=== PATIENT | female | born 1995 | race Caucasian/White ===

== ENCOUNTER 2023-11-11 11:05 | Emergency (ER) | payer OTHER, SELFPAY ==
--- NOTE | ~2023-11-11 | XR_ITS ---
EXAMINATION: XR RIBS, RIGHT CLINICAL INFORMATION: Fall/rib pain COMPARISON: None available. TECHNIQUE: 3 views of the right ribs were obtained. Chest one view. FINDINGS: CHEST: Lungs are clear. No consolidation, pneumothorax, or pleural effusion. The cardiomediastinal silhouette and pulmonary vasculature are normal. RIGHT RIBS: There is no visible acute fracture involving the right ribs. The bony chest wall is unremarkable. XR/XR ribs RT min 3V w CXR1V IMPRESSION: 1. Unremarkable chest exam. 2. Unremarkable right rib exam.
[2023-11-11 11:07] VITALS: BP 129/77; PULSE 95; RESP 18; TEMP 36.1; O2SAT 97; BMI 34.2
--- NOTE | 2023-11-11 14:42 | ED_ITS ---
HPI - General Adult General Chief complaint: General Medical Stated complaint: Fall last week R rib pain Time Seen by Provider: 11/11/23 14:42 Source: patient Mode of arrival: ambulatory Limitations: no limitations History of Present Illness HPI narrative: 28 year old female with no significant pmhx presents to the ED today for evaluation of right rib pain x3 days. States that approximately 1 week ago she fell while walking upstairs, reports hitting the front of her chest on 1 of the stairs and catching herself with her right arm. No head strike or LOC. not on AC. A few days later she began to have pain to her lower right ribs along her bra line. Pain is exacerbated with taking deep breaths. Has not noticed any bruising to the area. Pain does not radiate. Has not been taking anything at home for pain. Denies fever, chills, headache, dizziness, chest pain, shortness of breath, dyspnea, wheezing, Related Data Previous Rx's Medication Instructions Recorded lidocaine 5 % topical patch 1 patch topical DAILY #15 ea 11/11/23 (Lidoderm) naproxen 500 mg tablet 500 mg PO Q8-12H PRN pain (scale 11/11/23 score 4-6) #14 tabs Allergies Allergy/AdvReac Type Severity Reaction Status Date / Time No Known Allergies Allergy Verified 11/11/23 11:07 [No Known Allergies*] Review of Systems Review of Systems: Constitutional: No fever, chills, fatigue, night sweats, weight changes ENT/Mouth: No ear pain, hearing loss, nasal congestion, sinus pain, rhinorrhea, sore throat Eyes: No eye pain, swelling, redness, vision changes, discharge Cardio: No chest pain, palpitations, MELENDEZ, orthopnea, peripheral edema Pulm: No SOB, cough, sputum, wheezing, dyspnea, hemoptysis GI: No nausea, vomiting, hematemesis, abdominal pain, diarrhea, constipation, hematochezia, melena : No irregular bleeding, dysuria, frequency, urgency, hesitancy, hematuria, flank pain, urinary flow changes, urinary incontinence or retention MSK: No back pain, neck pain, joint pain, myalgias, +right rib pain Skin: No lesions, rashes Neuro: No weakness, numbness, paresthesias, LOC, dizziness, headache All other systems reviewed and are negative. [facility] Past Medical History Attestation statement: The following information was validated with the patient. Source: old records reviewed and nursing notes reviewed Social History Social History Advance Directives: No Advance Directives Information Provided: No Physical Exam ED Vital Signs: Vital Signs - 24 hr 11/11/23 11:07 11/11/23 15:00 Temperature 97.0 F Pulse Rate 95 80 Respiratory Rate 18 18 Blood Pressure 129/77 104/69 Pulse Oximetry 97 97 Oxygen Delivery Method Room Air Room Air BMI result Body Mass Index 34.2 Vital signs stable Const General: cooperative, healthy appearing, comfortable, no acute distress, alert and awake Orientation/consciousness: patient oriented x3 Limitations: no limitations HENMT Head: Yes normal to inspection, Yes No palpable skull fracture present, Yes normocephalic and Yes atraumatic Eyes General: appearance normal, both eyes and all related structures Conjunctivae: conjunctivae normal Sclerae: sclerae normal Pupils: Equal, round and reactive pupils present EOM: EOMs intact bilaterally Neck Neck: Yes normal visual inspection and Yes full ROM Chest Other: + normal inspection of anterior, lateral, posterior chest wall. There is tenderness to palpation of the anterior chest wall overlying the right 7th through 10th ribs. Pain is reproducible. No palpable deformity or crepitus. Symmetric chest wall movement. Resp Effort & Inspection: normal respiratory effort, able to speak in complete sentences and symmetric chest movement Auscultation: clear to auscultation bilaterally Cardio Rate: regular rate Rhythm: regular rhythm Peripheral pulses: radial pulses present GI Inspection: Yes normal to inspection Palpation (GI): Soft to palpation and nontender Back/Spine/Pelvis Other: No midline spinous tenderness. No paraspinal muscle tenderness. No step off deformity. Skin General skin exam: no rashes or lesions noted Neuro General: patient oriented x3, gait normal and moves all extremities Cranial nerves: Yes Equal, round and reactive pupils present Extrem General: Yes normal to inspection and Yes full ROM Course Course Course Narrative: X-ray does not demonstrate acute rib fracture or pneumothorax. Patient's symptoms are consistent with an MSK sprain/strain. Discussed imaging results with patient. Will send naproxen, Lidoderm patch to patient's pharmacy for pain control. Patient has remained stable throughout ED visit today. Discussed strict return precautions. All questions answered at this time. Patient is agreeable with disposition and stable for discharge. Medications Administered Discontinued Medications Generic Name Dose Route Start Last Admin Trade Name Cesar PRN Reason Stop Dose Admin Lidocaine 1 patch 11/11/23 14:51 11/11/23 14:59 Lidocaine 4 % Patch Adh..Patch TRANSDERMA 11/11/23 14:52 1 patch ONCE ONE Administration Protocol Medical Decision Making Medical Decision Making MDM Narrative: 28 year old female with no significant pmhx presents to the ED today for evaluation of right rib pain x3 days. Vital signs stable. On exam, normal inspection of anterior, lateral, posterior chest wall. There is tenderness to palpation of the anterior chest wall overlying the right 7th through 10th ribs. Pain is reproducible. No palpable deformity or crepitus. Symmetric chest wall movement. Clinical concern for MSK sprain/strain, fracture, pneumothorax. Unlikely ACS, arrhythmia, PE, pleuritis, pericarditis, chest wall trauma. Plan for xrays and re-evaluation. Differential Diagnosis Differential Diagnoses: The differential diagnosis associated with the presentation includes As above. Admission/Observation Not indicated. Independent Interpretation I performed an independent interpretation of an: Plain X-Ray Interpretation: X-ray ribs is not demonstrate fracture or pneumothorax, with radiologist's interpretation. Radiology Impression Discussion of test interpretation with radiology: I have reviewed the radiologist's reading. Radiologist Impression: XR ribs RT min 3V w CXR1V IMPRESSION: 1. Unremarkable chest exam. 2. Unremarkable right rib exam. External Record Review External record reviewed: Inpatient record Prescription Management I considered prescription management with: Pain Medication Critical Care Time Critical Care Time Critical Care Time: No Discharge Plan Discharge Clinical Impression: Rib pain on right side Patient Disposition: Home, Self-Care Instructions: Musculoskeletal Pain (ED) Additional Instructions: Your chest x-ray was normal. The x-ray of her ribs was normal and did not demonstrate fracture. Your pain is likely musculoskeletal. Avoid bending, lifting, or twisting. Use ice several times per day for 20 minutes at a time for the next 48 hours and then change to heat. Naproxen is an anti-inflammatory / pain medication. Take with food. Do not take this with Ibuprofen or other NSAIDs as this may increase the risk of GI bleeding. Lidoderm patches are numbing patches. Apply to painful areas. In addition you may take Tylenol at home. Follow up with your primary care provider as needed If your pain worsens, if you develop new numbness, tingling, weakness, loss of bowel or bladder function call 911 or return to the ER immediately for evaluation. Prescriptions: New naproxen 500 mg tablet 500 mg PO Q8-12H PRN (Reason: pain (scale score 4-6)) Qty: 14 0RF lidocaine [Lidoderm] 5 % adhesive patch,medicated 1 patch topical DAILY Qty: 15 0RF Rx Instructions: leave on most painful area for up to 12 hrs Referrals: Physician,Unknown J [Primary Care Provider] - Interventions: ED Discharge Assessment Last Done: 11/11/23 15:02 Discharge Date/Time: 11/11/23 15:02
[2023-11-11] MEDS: Lidocaine 4 % Patch ADH..PATCH 1 PATCH TRANSDERMA (14:59)
[2023-11-11 15:00] VITALS: BP 104/69; PULSE 80; RESP 18; O2SAT 97
== END 2023-11-11 15:02 | disposition home or self-care (01) ==
PROVIDERS: Emergency Provider Emergency Medicine
DX: R07.81 Pleurodynia (principal); R06.00 Dyspnea, unspecified; Z91.81 History of falling
CPT/HCPCS: 71101; 99283